=== PATIENT | male | born 1970 | race Asian ===

== ENCOUNTER 2022-01-06 12:25 | Inpatient (IN) | payer MEDICARE, OTHER ==
[~2022-01-06] VITALS: Ht 188 cm; Wt 102.1 kg
--- NOTE | 2022-01-06 12:45 | NUR ---
[facility] C/O L FOOT PAIN, OPEN WOUND EVALUATION
--- NOTE | 2022-01-06 13:15 | NUR ---
established IV line right AC 20g infusing, lab drawn sent to lab
--- NOTE | 2022-01-06 13:20 | NUR ---
covid swab done sent to lab
[2022-01-06 13:22] LABS: BASOPHILS % (AUTO) 0.5 % (0.0-2.0); EOSINOPHILS % (AUTO) 1.9 % (0.0-6.0); HEMATOCRIT 41 % (39-51); HEMOGLOBIN 13.6 g/dL (13.5-17.5); LYMPHOCYTES % (AUTO) 15.3 % (20.0-44.0); MEAN CORPUSCULAR HGB CONC 33 g/dl (31.0-36.0); MEAN CORPUSCULAR VOLUME 95 fL (80-96); MONOCYTES # (AUTO) 0.4 K/uL (0.1-1.30); MONOCYTES % (AUTO) 6.4 % (2.0-12.0); NEUTROPHILS # (AUTO) 5.2 K/uL (1.8-8.9); NEUTROPHILS % (AUTO) 75.9 % (43.0-81.0); PLATELET COUNT (AUTO) 137 K/uL (150-450); RED BLOOD CELL COUNT(AUTO) 4.33 MIL/uL (4.5-6.0); WHITE BLOOD COUNT (AUTO) 6.9 K/uL (4.3-11.0)
[2022-01-06] MEDS ORDERED: MORPHINE SULFATE INJ 4 MG/ML DISP.SYRIN ONE (13:26)
[2022-01-06] MEDS ORDERED: VANCOMYCIN HCL 1.25 GM in IV D5W 260 ML IV ONE (13:30)
[2022-01-06] MEDS ORDERED: MORPHINE SULFATE INJ 2 MG/ML DISP.SYRIN IV ONE (13:30)
--- NOTE | 2022-01-06 13:37 | NUR ---
MOVE SHEET SUBMITTED.
[2022-01-06 13:50] LABS: CALCIUM, SERUM 9.2 mg/dL (8.5-10.1); CREATININE 4.6 mg/dL (0.6-1.3); POTASSIUM 4.1 mmol/L (3.5-5.1)
[2022-01-06 13:51] LABS: C-REACTIVE PROTEIN 10.1 mg/dL (0.0-0.9)
[2022-01-06] MEDS ORDERED: VIT1TABL46 PO (13:59)
[2022-01-06] MEDS ORDERED: PANT40TA49 PO (13:59)
[2022-01-06] MEDS ORDERED: METO-295 PO (13:59)
[2022-01-06] MEDS ORDERED: ONDA4TAB5 PO (13:59)
[2022-01-06] MEDS ORDERED: SODI10PO PO (13:59)
[2022-01-06] MEDS ORDERED: CLON0.2T PO (13:59)
[2022-01-06] MEDS ORDERED: AMLO-213 PO (13:59)
[2022-01-06] MEDS ORDERED: SEVE800T8 PO (13:59)
[2022-01-06] MEDS ORDERED: VALS80TA2 PO (13:59)
[2022-01-06] MEDS ORDERED: HYDR-3972 PO (13:59)
[2022-01-06] MEDS ORDERED: CALC667C6 PO (13:59)
[2022-01-06] MEDS ORDERED: AMIT25TA9 PO (13:59)
[2022-01-06] MEDS ORDERED: METO-358 PO (13:59)
[2022-01-06] MEDS ORDERED: ALPR1TAB7 PO (13:59)
[2022-01-06] MEDS ORDERED: ASPI-1169 PO (13:59)
[2022-01-06] MEDS ORDERED: NALO4SPR NS (13:59)
[2022-01-06] MEDS ORDERED: ROSU5TAB13 PO (13:59)
--- NOTE | 2022-01-06 14:03 | NUR ---
critical lab result = glucose [address] Ngo
--- NOTE | 2022-01-06 14:10 | NUR ---
Morphine 2 mg IVP given for pain as ordered, vancomycin now infusing
--- NOTE | 2022-01-06 14:13 | NUR ---
PATIENT RECEIVED MODERNA COVID INJECTION X 2; 05/24/20, 06/18/20, AND MODERNA BOOSTER SHOTS ON 01/21/21 AND 10/27/21.
--- NOTE | 2022-01-06 14:49 | NUR ---
BED 306-1
--- NOTE | 2022-01-06 15:27 | NUR ---
Patient does not wish to proceed with medical care recommended by Dr. Ngo. Patient given information related to possible complications, up to and including , which could occur as a result of leaving the hospital at this time. Patient verbalizes understanding of risks involved due to leaving against medical advice. Patient has signed AMA form. IV infusion halted. IV line and ID band removed. Patient ambulated out of hospital accompanied by his parents to private vehicle. Addendum: 01/06/22 at 1529 by THERESA MD made aware of patient decision
[2022-01-06 15:30] VITALS: BP 135/73
[2022-01-06] MEDS ORDERED: HYDROMORPHONE INJ 2 MG/ML DISP.SYRIN IV PRN (15:30)
[2022-01-06] MEDS ORDERED: ONDANSETRON HCL/PF 4 MG/2 ML VIAL IVP PRN (15:30)
[2022-01-06] MEDS ORDERED: ACETAMINOPHEN 325 MG TABLET PO PRN (15:30)
[2022-01-06] MEDS ORDERED: Z GUARD REMEDY 4 OZ OINT TP PRN (15:30)
[2022-01-06] MEDS ORDERED: CEFTRIAXONE 2 G in IV D5W 100 ML IV SCH (17:00)
[2022-01-06] MEDS ORDERED: CLONIDINE HCL 0.1 MG TABLET PO SCH (17:00)
[2022-01-06] MEDS ORDERED: SEVELAMER CARBONATE 800 MG TABLET PO SCH (18:00)
[2022-01-06] MEDS ORDERED: CALCIUM ACETATE 667 MG CAP/TAB PO SCH (18:00)
[2022-01-06] MEDS ORDERED: AMITRIPTYLINE HCL 25 MG TABLET PO SCH (22:00)
[2022-01-06] MEDS ORDERED: ALPRAZOLAM 1 MG TABLET PO SCH (22:00)
[2022-01-07] MEDS ORDERED: PANTOPRAZOLE 40 MG TABLET.DR PO SCH (07:30)
[2022-01-07] MEDS ORDERED: ATORVASTATIN 10 MG TABLET PO SCH (09:00)
[2022-01-07] MEDS ORDERED: AMLODIPINE BESYLATE 10 MG TABLET PO SCH (09:00)
[2022-01-07] MEDS ORDERED: ASPIRIN 81 MG TAB.CHEW PO SCH (09:00)
[2022-01-07] MEDS ORDERED: VIT B CMPLX 3/FA/VIT C/BIOTIN 1 TAB TABLET PO SCH (09:00)
[2022-01-07] MEDS ORDERED: VALSARTAN 80 MG TABLET PO SCH (09:00)
[2022-01-07] MEDS ORDERED: METOPROLOL SUCCINATE 50 MG TAB.SR.24H PO SCH (09:00)
[2022-01-07] MEDS ORDERED: VANCOMYCIN 500 MG in IV D5W 100 ML IV PRN (16:00)
== END 2022-01-06 15:27 | disposition left against medical advice (07) | DRG 602 ==
LOC: ER 12:28 → MED 14:51
PROVIDERS: ADMIT Nurse Practitioner Family; ATTEND Nurse Practitioner Family
DX: L03.116 Cellulitis of left lower limb (principal); N18.6 End stage renal disease; E87.1 Hypo-osmolality and hyponatremia; I12.0 Hypertensive chronic kidney disease with stage 5 chronic kidney disease or end stage renal disease; M86.172 Other acute osteomyelitis, left ankle and foot; E11.69 Type 2 diabetes mellitus with other specified complication; E11.628 Type 2 diabetes mellitus with other skin complications; E11.22 Type 2 diabetes mellitus with diabetic chronic kidney disease; K52.9 Noninfective gastroenteritis and colitis, unspecified; Z99.2 Dependence on renal dialysis; Z89.421 Acquired absence of other right toe(s); Z79.82 Long term (current) use of aspirin; Z79.899 Other long term (current) drug therapy; D69.6 Thrombocytopenia, unspecified; Z91.14 Patient's other noncompliance with medication regimen; Z53.29 Procedure and treatment not carried out because of patient's decision for other reasons; Z87.19 Personal history of other diseases of the digestive system; Z87.39 Personal history of other diseases of the musculoskeletal system and connective tissue; E11.65 Type 2 diabetes mellitus with hyperglycemia
CPT/HCPCS: 36415; 73630-TC; 80048-TC; 85025-TC; 85652-TC; 86140-TC; C9803; G0378; J0696; J2270; J7040; J7060